=== PATIENT | female | born 1980 | race Two or more races ===

== ENCOUNTER 2023-02-10 20:49 | Emergency (ER) | payer SELFPAY ==
[~2023-02-10] VITALS: Ht 167.6 cm; Wt 98.2 kg
[2023-02-10 23:25] LABS: Urine Bacteria FEW /hpf (None Seen); Urine Blood Negative /uL (Negative); Urine Clarity Clear (Clear); Urine Color Yellow (Yellow); Urine Protein, UAD Negative (Negative); Urine Specific Gravity 1.023 (1.001-1.035); Urine Urobilinogen Normal (Negative); Urine WBC 1 /hpf (0 - 5); Urine pH 5.5 (5.0-8.0)
[2023-02-11] MEDS ORDERED: IBUP-1456 PO (01:22)
[2023-02-11] MEDS ORDERED: CYCL-837 PO (01:22)
[2023-02-11] MEDS ORDERED: KETOROLAC TROMETH 60MG/2ML VIAL IM ONE (01:30)
[2023-02-11 03:00] VITALS: BP 129/67; PULSE 79; RESP 19; TEMP 97.8; O2SAT 100
== END 2023-02-11 03:08 | disposition home or self-care (01) ==
LOC: ER 20:49
DX: M54.31 Sciatica, right side (principal); Z79.1 Long term (current) use of non-steroidal anti-inflammatories (NSAID); Z79.899 Other long term (current) drug therapy
CPT/HCPCS: 81001; 81025; 96372; 99283; J1885

== ENCOUNTER 2025-02-19 16:57 | Emergency (ER) | payer BC ==
[~2025-02-19] VITALS: Ht 167.6 cm; Wt 98.8 kg
[~2025-02-19 16:57] MED LIST: CYCL-837 PO; IBUP-1456 PO
[2025-02-19 16:58] VITALS: BP 152/99; PULSE 96; RESP 16; TEMP 98.6; O2SAT 98
[2025-02-19] MEDS ORDERED: IBUP-1454 PO (19:58)
[2025-02-19] MEDS ORDERED: HYD1TP TOP (19:58)
--- NOTE | 2025-02-19 20:02 | ED.PDOC ---
History of Present Illness HPI Comments 44-year-old female presents with chief complaint of generalized rash, with the associated bilateral wrist and right ankle pain and bilateral feet swelling. She reports on having symptoms for over the past few days after, initially, noticing them. Suspects on possible insect bite. No endorsed recent outdoor activities. Patient reports taking amoxicillin currently after being prescribed from urgent care for "eye swelling and left ear pain." No further pertinent history reported. Denies on any further acute symptoms at this time. REVIEW OF SYSTEMS: General: No fever, no chills, or fatigue HEENT: No sore throat, no earache, no congestion, no neck pain. Cardiac: No chest pain. No palpitations. Lungs: No shortness of breath, no cough. GI: No nausea, no vomiting, no diarrhea, no constipation, no abdominal pain : No dysuria, frequency, or urgency. No hematuria. Musculoskeletal: Bilateral wrist and left ankle pain, bilateral feet swelling Skin: Rash, no itching. Neuro: No headache, no dizziness, no weakness PHYSICAL EXAM: General: Awake, alert and oriented. No acute distress. Skin: Skin in warm, dry and intact. Appropriate color for ethnicity. Multiple erythematous papules diffuse across were and lower extremities and face, with no obvious signs of deformity or swelling. HEENT: The head is normocephalic and atraumatic. Conjunctivae are clear without exudates or hemorrhage. Sclera is non-icteric. EOM are intact. No signs. Left tympanic membranes normal. No signs of nystagmus. Eyelids are normal in appearance without swelling or lesions. Oral mucosa is pink and moist Neck: The neck is supple with normal range of motion. No JVD. Cardiac: Heart rate and rhythm are normal. No murmurs, gallops, or rubs are auscultated. Respiratory: No signs of respiratory distress. Lung sounds are clear in all lobes bilaterally without rales, rhonchi, or wheezes. Abdominal: Abdomen is soft, non-tender without distention, guarding or rigidity. Bowel sounds are present and normoactive in all four quadrants. Extremities: Upper and lower extremities are atraumatic in appearance without deformity or edema. Neurological: The patient is awake, alert and oriented to person, place, and time with normal speech. Speech is clear. There is no facial asymmetry. Psychiatric: Appropriate mood and affect. Good judgement and insight. Chief Complaint: Insect Bite Time Seen by MD: 19:50 Allergies: Coded Allergies: Cephalexin (Verified Allergy, Unknown, 02/19/25) Home Meds Active Scripts Ibuprofen (Ibuprofen) 600 Mg Tab, 1 TAB PO TID, #15 TAB Prov:FABRIZIO CM MD 02/19/25 Hydrocortone (Hydrocortisone 1%) 1 Applic Ap, 1 APPLIC TOP BID, #7 GRAMS Prov:FABRIZIO CM MD 02/19/25 Cyclobenzaprine Hcl (Cyclobenzaprine Hcl) 5 Mg Tab, 1 TAB PO QPM PRN, #14 TAB 0 Refills Prov:NATI DE JESUS 02/11/23 Ibuprofen (Ibuprofen) 800 Mg Tab, 1 TAB PO TID PRN, #30 TAB 0 Refills Prov:NATI DE JESUS 02/11/23 Mode of Arrival: Ambulatory Past Medical History Past Medical History (Other): Chronic back pain Surgical History: 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 Was a procedure done?: No Differential Dx Considerations may include: Angioedema, exposure to unknown allergen, insect bite, dermatitis, cellulitis, among others X-Ray, Labs, Meds, VS Vital Signs Date Time Temp Pulse Resp B/P (MAP) Pulse Ox O2 Delivery O2 Flow Rate FiO2 02/19/25 16:58 98.6 96 16 152/99 98 98.6 Time of 1ST Reevaluation: 20:20 Reevaluation 1ST: Unchanged Patient Education/Counseling: Treatment, Need For Follow Up Family Education/Counseling: No Family Present SEPSIS Sepsis Screen Date sepsis recognized/suspect: Feb 19, 2025 Time Sepsis recognized/suspect: 1657 Recent Procedure: No On Antibiotic Therapy: No Respiratory Rate >20: No Heart Rate >90: No Temp<36 C (96.8 F) or >38.3 C: No SBP <90 or MAP <65 mmHG: No New Acute Mental Status Change: No Is the patient on CPAP, BIPAP,: No Vital Signs Date Time Temp Pulse Resp B/P (MAP) Pulse Ox O2 Delivery O2 Flow Rate FiO2 02/19/25 16:58 98.6 96 16 152/99 98 98.6 Departure 1 Departure Time of Disposition: 19:59 Impression: Primary Impression: Rash Disposition: 01 HOME / SELF CARE / HOMELESS Condition: Stable Additional Instructions: ED DISCHARGE INSTRUCTIONS Instructions: Please read all instructions provided in this packet carefully. Although you have been discharged from the Emergency Department, this does not mean that you have a "clean bill of health" No definitive diagnosis for your symptoms has been made today. It is possible that you are in the process of developing a serious illness. This is why you must return to the ED without fail if any new or worsening symptoms (especially if your symptoms include chest pain, trouble breathing, abdominal pain, fever, headache, confusion, trouble seeing, or trouble walking) It is also very important that you see a primary care provider (PCP) within the next 3-5 days to follow up. If you are unable to get an appointment, return to the ED for re-evaluation . No e-Prescriptions Ibuprofen (Ibuprofen) 600 Mg Tab 1 TAB PO TID, #15 TAB Prov: FABRIZIO CM MD 02/19/25 Hydrocortone (Hydrocortisone 1%) 1 Applic Ap 1 APPLIC TOP BID, #7 GRAMS Prov: FABRIZIO CM MD 02/19/25 Comments MDM: Patient well-appearing, nontoxic. Advised prompt follow-up with PCP, return to the ED with any new, worsening or concerning symptoms. Decision regarding hospitalization or escalation of hospital level of care: Risks and benefits of admission for further treatment of patient's condition was considered however due to patient's stable condition patient will be discharged to follow up closely or return to care for worsening of condition or inability to follow up. Critical Care Note Critical Care Time?: No Stability Stability form required: No Heart Score Heart Score: Heart Score Response (Comments) Value History N/A 0 EKG N/A 0 Age N/A 0 Risk Factors N/A 0 Troponin N/A 0 Total 0 I personally scribed for FABRIZIO CM MD ([email or web address]) on 02/19/25 at 20:02. Electronically submitted by Vijay Keys ([email or web address]). FABRIZIO CM MD Feb 19, 2025 20:02
== END 2025-02-19 23:24 | disposition home or self-care (01) ==
LOC: ER 16:57
DX: R21 Rash and other nonspecific skin eruption (principal); M79.89 Other specified soft tissue disorders; Z90.49 Acquired absence of other specified parts of digestive tract; Z88.1 Allergy status to other antibiotic agents; W57.XXXA Bitten or stung by nonvenomous insect and other nonvenomous arthropods, initial encounter; X58.XXXA Exposure to other specified factors, initial encounter; Y93.89 Activity, other specified; Y92.89 Other specified places as the place of occurrence of the external cause; Y99.8 Other external cause status